=== PATIENT | female | born 1965 | race African-American/Black ===

== ENCOUNTER 2019-01-11 07:36 | Inpatient (IN) ==
[2019-01-11] MEDS ORDERED: ASPIRIN PO ONE (07:44)
[2019-01-11 08:13] LABS: INR 1.05; PROTIME 14.5 Seconds (11.0-16.0)
[2019-01-11 08:25] LABS: PTT 32.4 Seconds (22.3-41.8)
--- NOTE | 2019-01-11 08:27 | Diag Imaging Result Doc PS360 ---
EXAM: CHEST-2 VIEWS INDICATION: SOB TECHNIQUE: 2 views COMPARISON: 08/14/2018 FINDINGS: There is mild elevation of the right hemidiaphragm. The lungs are grossly clear. There is no discrete pleural fluid collection or pneumothorax. The cardiomediastinal silhouette and central vasculature are grossly unremarkable. IMPRESSION: No evidence of acute pathology by plain radiograph. Electronically signed by Flex Almonte 01/11/2019 8:25 AM
[2019-01-11 08:49] LABS: BASO# 0.01 X1000 (0.0-0.2); BASO% 0.2 % (0.0-0.8); EOS# 0.08 X1000 (0.0-0.7); EOS% 1.8 % (0.0-10.0); HEMATOCRIT 13.8 % (37.0-47.0); HEMOGLOBIN 4.3 g/dL (12.0-16.0); LYMPH# 0.71 X1000 (1.2-3.4); LYMPH% 16.1 % (20.5-51.1); MCH 29.1 PG (27-31); MCHC 31.2 g/dL (33-37); MCV 93.2 FL (81-99); MONO# 0.56 X1000 (0.11-0.59); MONO% 12.7 % (1.7-9.3); MPV 10.5 FL (7.4-10.4); NEUT# 3.06 X1000 (1.4-6.5); NEUT% 69.2 % (42.2-75.2); PLT 161 X1000 (130-400); RBC 1.48 XMIL (4.2-5.4); RDW 13.8 % (11.5-14.5); WBC 4.42 X1000 (4.8-10.8)
[2019-01-11 09:15] LABS: AGAP 9; ALB/GLOB RATIO 1.2; ALBUMIN 2.9 g/dL (3.5-5.0); ALKALINE PHOSPHATASE 64 U/L (32-104); BUN 76 mg/dL (8-22); CALCIUM 8.3 mg/dL (8.8-10.2); CHLORIDE 110 mmol/L (98-107); CK PROFILE 66 U/L (24-173); COSMO 295; CREATININE 4.7 mg/dL (0.5-0.9); ESTIMATED GFR 12; GLUCOSE 113 mg/dL (70-104); GOT 21 U/L (10-30); GPT 14 U/L (10-36); POTASSIUM 5.4 mmol/L (3.5-5.1); SODIUM 136 mmol/L (136-145); TCO2 17 mmol/L (25-35); TOTAL BILIRUBIN < 0.15 mg/dL (0.20-1.00); TOTAL PROTEIN 5.4 g/dL (6.3-8.3)
[2019-01-11 09:26] LABS: IRON SATURATION 10 %; TIBC 294 ug/dL; TOTAL IRON 28 ug/dL (49-151); UNBOUND IRON 266 ug/dL (112-346)
[2019-01-11] MEDS ORDERED: LASIX IV ONE (09:42)
--- NOTE | 2019-01-11 09:55 | EKG Report ---
Test Performed on : 01/11/2019 07:41:18 AM Test Reason : SOB Blood Pressure : / mmHG Vent. Rate : 106 BPM Atrial Rate : 106 BPM P-R Int : 120 ms QRS Dur : 082 ms QT Int : 338 ms P-R-T Axes : 067 060 092 degrees QTc Int : 448 ms Sinus tachycardia. Possible Left atrial enlargement Left ventricular hypertrophy with repolarization abnormality Abnormal ECG When compared with ECG of 22-NOV-2018 10:20, Non-specific change in ST segment in Anterior leads T wave inversion no longer evident in Inferior leads Nonspecific T wave abnormality has replaced inverted T waves in Lateral leads Unconfirmed Result
[2019-01-11] MEDS: PROTONIX 80 MG in NS 80 ML IV SCH ×2 (10:19→18:01)
[2019-01-11] MEDS ORDERED: ZOFRAN IV PRN (10:23)
--- NOTE | 2019-01-11 12:06 | HISTORY AND PHYSICAL ---
PRIMARY CARE PROVIDER: Dr. Hoffman. CHIEF COMPLAINT: Chills, shortness of breath, severe reflux, dark stools along with nausea. HISTORY OF PRESENT ILLNESS: Ms. Sheba Metz is a 53-year-old female with a medical history of hypertension, GERD, end-stage renal disease not yet on dialysis but does have a new right upper arm AV graft, gastroparesis, severe duodenitis with duodenal erosions on an EGD from July of 2018, now presents with complaints of chills since her last admission in July of 2018, but over the last 2 or 3 days she has had some severe shortness of breath , daily dark stools, severe reflux with nausea. Lab work revealed that she has a significantly low hemoglobin and hematocrit of 4.3 and 13.8. Her end-stage renal disease is stable, so will admit to the ICU for treatment, will consult Dr. Yang and Dr. Petersen. PAST MEDICAL HISTORY: 1. Hypertension, 2. GERD with severe reflux. 3. End-stage renal disease or stage 5. 4. Gastroparesis. 5. July 2018 had severe duodenitis and duodenal erosions along with small bowel AV malformation. 6. Severe left ventricular hypertrophy due to hypertensive heart disease. SURGICAL HISTORY: Right upper arm AV fistula placed October of 2018. SOCIAL HISTORY: Smokes a half-pack per day and has so for at least 40 years. Denies alcohol or illicit drug use. FAMILY HISTORY: Mother had atrial fibrillation and CVA. Father had diabetes. ALLERGIES: No known drug allergies. HOME MEDICATIONS: Not verified by medication reconciliation but does have amlodipine 10 mg p.o. daily, Lasix 40 mg p.r.n., hydralazine 100 mg unknown frequency, Lopressor 50 mg p.o. twice daily, and Zofran 4 mg p.o. q.4 h. p.r.n., but again, these have not been verified. REVIEW OF SYSTEMS: Fourteen-point review of systems are complete and all were negative except for those mentioned above in HPI. She has been having chills, severe fatigue and weakness, dark stools with severe reflux and nausea. Denies any pain. PHYSICAL EXAMINATION: VITAL SIGNS: Temperature 98.1, heart rate 91, respiratory rate 18, blood pressure 151/84, saturation 100% on room air, 5 feet 8 inches tall, 130 pounds, BMI is 19.8. GENERAL: Ms. Sheba Metz is a 53-year-old female. She is in no acute distress. She is able to answer questions appropriately. HEENT: Atraumatic, normocephalic. Pupils equal, round, reactive to light. Extraocular movements intact. Mucous membranes are dry. Sclera is pale. NECK: Trachea midline. CARDIOVASCULAR: S1, S2, regular rate and rhythm, no rubs, gallops, or murmurs. No lower extremity edema. +2 dorsalis and radial pulses. Negative JVD or carotid bruits. PULMONARY: Clear to auscultate bilateral breath sounds. No accessory muscle use or work of breathing noted. GI: Soft, nontender, nondistended. Hypoactive bowel sounds x4. EXTREMITIES: Moves all extremities equally with full range of motion. Positive bruit and thrill in the right upper arm AV graft. NEUROLOGICAL: Alert and oriented x4, follows commands. Sensory is intact. SKIN: Warm, dry, and intact. LABORATORY DATA: White blood cells 4000, hemoglobin 4.3, hematocrit 13.8, platelet count 161. INR is 1.05, PTT is 32.4. Sodium 136, potassium 5.4, BUN 76, creatinine 4.7, glucose 113, calcium 8.3. Iron 28, total iron-binding capacity 294, saturation 10, unsaturated iron binding 266, ferritin 12. Bilirubin is less than 0.15. AST 21, ALT 14. CK 66. Troponin less than 0.01. ProBNP 3778. Albumin 2.9. IMAGING: Chest x-ray: There is mild elevation of the right hemidiaphragm. Lungs are clear. No pulmonary edema. ASSESSMENT AND PLAN: 1. Acute blood loss anemia secondary to gastrointestinal bleed. Has been having severe reflux with dark stools and shortness of breath that has started over the last 2-3 days with a July of 2018 diagnosis of hiatal hernia, erosive gastritis and severe duodenitis with small bowel AV malformation. She denies taking any medication such as ibuprofen or any other irritants of the stomach. During that time, she was seen by Dr. Bettencourt and was sent home on Protonix. Will start with a Protonix drip and will transfuse 3 units of packed red blood cells, and given her left ventricular hypertrophy that was severe, she will get a dose of Lasix with that. 2. Shortness of breath secondary to anemia. 3. Chronic kidney disease stage 5, now has a right upper arm AV graft but has not been started on hemodialysis yet. Potassium is mildly elevated at 5.4. Dr. Petersen has been following her as an outpatient. Will reconsult him. 4. History of severe left ventricular hypertrophy secondary to hypertensive heart disease. She takes Lasix p.r.n. at home. She takes metoprolol. Once medications are verified, will resume her beta-gerardo. 5. Hypertension. Currently blood pressure is somewhat stable, is in the 150s right now. At home, she should be on metoprolol and amlodipine along with hydralazine. May have to start her on something IV until she can start taking p.o. 6. Gastroparesis history. She was on Reglan at home. Will hold for now. 7. Tobacco abuse. Cessation discussed. She has no wishes to quit. 8. DVT prophylaxis. SCDs. Dictated by VICTOR HUGO De La Fuente for Scooby Hartman MD Addendum: Patient seen and examined by myself. Agree with VICTOR HUGO note. It reflects my assessment and plan. Patient is being admitted to hospital for possible GI bleeding. Hb is 4.3. Will transfuse 3 units of PRBC. She is very short of breath secondary to anemia. Also there a acute on chronic kidney disease. Will monitor patient closely. Will consult GI for possible EGD. Will send patient to ICU for better monitoring. cc: VICTOR HUGO De La Fuente MD [facility] CENTERJaime
--- NOTE | 2019-01-11 13:52 | PROVIDER DOCUMENTATION ---
This chart was entered by Leonela Almonte Scribe, acting as scribe for Kat Silverio MD. HPI-Respiratory General - General Chief Complaint: Shortness of Breath Stated Complaint: SHORTNESS OF BREATH / WEAKNESS Time Seen by Provider: 01/11/19 08:02 Source: patient Allergies/Adverse Reactions: Patient Allergies Allergy/AdvReac Type Severity Reaction Status Date / Time No Known Allergies Allergy Verified 01/11/19 08:45 Home Medications: Home Medication List Medication Instructions Recorded Confirmed Last Taken Type Metoprolol [Lopressor] 50 mg PO BID #120 tab 08/16/18 01/11/19 01/10/19 Rx Furosemide [Lasix] 40 mg PO BID 11/22/18 01/11/19 Unknown History Ondansetron [Zofran] 4 mg PO Q4H PRN PRN #10 tablet 11/24/18 01/11/19 01/11/19 Rx Amlodipine Besylate 1 tab PO DAILY 01/11/19 01/11/19 01/10/19 History Folic Acid/B Cplx/C/Selen/Zinc 3,000 mg PO DAILY 01/11/19 01/11/19 Unknown History [Dialyvite 3,000 Tablet] Hydralazine HCl 100 mg PO TID 01/11/19 01/11/19 01/10/19 History - History of Present Illness-Resp Nature of Presenting Problem: 53 yof presents w/family to ed w/ co sob for a few days but was worse yesterday while pt was working. pt states she couldn't walk to bathroom this morning w/ out feeling sob. pt says she feels better when laying flat. pt is also coughing some and sneezing. pt called pcp for apt but missed appt to come to er. pt has hx of chf, HTN, kidney disease. pt family said she had some leg cramps night before last and was painful. pt is a smoker. Severity in ED: reports: mild Onset/Duration: reports: other (few days ago) Timing: reports: still present Review of Systems - Adult - REVIEW OF SYSTEMS - ADULT Constitutional: reports: no symptoms reported Eyes: reports: no symptoms reported Ears, Nose, Mouth & Throat: reports: no symptoms reported Cardiovascular: reports: no symptoms reported Respiratory: reports: cough, shortness of breath. denies: dyspnea on exertion, excessive sputum production, hemoptysis Gastrointestinal: reports: no symptoms reported Genitourinary: reports: no symptoms reported Musculoskeletal: reports: no symptoms reported Integumentary: reports: no symptoms reported Neurological: reports: no symptoms reported Psychiatric: reports: no symptoms reported Endocrine: reports: no symptoms reported Hematologic/Lymphatic: reports: no symptoms reported Allergic/Immunologic: reports: no symptoms reported All Other Systems: Reviewed and Negative Past History - Adult - PAST MEDICAL HISTORY-ADULT Review of Records: reports: Old Records Reviewed, Nursing Assessment Review, Medications Reviewed, Social history reviewed & non-contributory. Major Childhood Illnesses: reports: denies history Cardiovascular: reports: CHF, HTN (untreated) Respiratory: reports: denies history Gastrointestinal: reports: denies history Obstetrical/Gynecological: reports: denies history Genitourinary: reports: kidney disease Musculoskeletal: reports: denies history Neurological: reports: denies history Endocrine/Immune: reports: denies history Other Conditions: reports: denies history - PRIOR SURGERIES/PROCEDURES Surgical/Procedure History: reports: other (port placed in arm) - PRIOR HOSPITALIZATIONS Prior Hospitalizations: reports: none - IMMUNIZATION STATUS Childhood Immunizations: See Nurse Assessment Flu Vaccine: See Nurse Assessment - FAMILY HISTORY Family History: reviewed, not pertinent - SOCIAL HISTORY Smoking: cigarettes, less than 1 pack/day Provider spent 3-5 mins advising pt. on dangers of tobacco.: Discussed manners to quit use, and f/u contacts for add'l counseling. Substance Use: none/never Physical Exam-General - PHYSICAL EXAM-ADULT Initial Vital Signs Reviewed: Yes - CONSTITUTIONAL General Appearance: appears well, alert, no apparent distress - EYES Eyes: PERRL/EOMI, pink conjunctivae - HEAD, EARS, NOSE, MOUTH & THROAT HENMT: normocephalic/atraumatic, moist mucous membranes, normal ENT inspection - NECK Neck: non-tender, full range of motion, supple - RESPIRATORY Respiratory: chest non-tender, lungs clear, normal breath sounds - CARDIOVASCULAR Cardiovascular: normal peripheral pulses, no edema, no JVD, no murmur, tachycardia. negative: gallop/S3, gallop/S4, extra beats - GASTROINTESTINAL (ABDOMEN) Abdominal Exam: normal bowel sounds, non tender, soft - LYMPHATIC Lymphatic: no adenopathy - MUSCULOSKELETAL Back Exam: normal inspection, no CVA tenderness, no vertebral tenderness Extremity: normal range of motion, non-tender, normal inspection - SKIN Integumentary: normal color, normal turgor, warm/dry - NEUROLOGIC Neurologic: hand alterations tailor II-XII nml as tested, grossly normal - PSYCHIATRIC Psych/Mental Status: normal mood/affect, normal thought content, normal thought process, oriented x 3 Progress - PLAN OF CARE/RESULTS Result Diagrams: 01/12/19 19:44 01/12/19 04:30 - REASSESSMENT Reassessment #1 Time Reassessed: 08:51 (received notification of critical lab value, it was unchanged, so pt will recieve transfusion and be admitted. ) Status: unchanged - EKG 1 Time of EKG reading by physician:: 07:41 EKG Read and Signed by:: Kat Silverio EKG Interpretation (*Must complete 3 of following elements*): Abnormal Rate: 106 Rhythm: Sinus Tachycardia WV Interval: normal Comments: LVH - XRAY 1 XRAY Study: Chest Impression: See EMR Report (EXAM: CHEST-2 VIEWS INDICATION: SOB TECHNIQUE: 2 views COMPARISON: 08/14/2018 FINDINGS: There is mild elevation of the right hemidiaphragm. The lungs are grossly clear. There is no discrete pleural fluid collection or pneumothorax. The cardiomediastinal silhouette and central vasculature are grossly unremarkable. IMPRESSION: No evidence of acute pathology by plain radiograph. Electronically signed by Flex Almonte 2018 8:25 AM 01/11/19 0825 Interpreting Physician: Flex Almonte MD Dictated Date/Time: 01/11/19 0823 cc: Kat Silverio MD; Xavier Hoffman MD) Departure - Departure Date of Disposition Decision: 01/11/19 Time of Disposition Decision: 10:03 DIAGNOSIS: Acute on chronic blood loss anemia, Dyspnea, Weakness Disposition: ADMITTED INPATIENT 09 Certified Medical Emergency: Emergent Condition: Stable - Critical Care Note This patient required my direct & personal management of CC.: Yes Total Time (mins): 35 Critical Care Statement: This patient required my direct personal management to treat or rule out processes, the absence of which, could potentiallly result in sudden, clinically significant life or limb threatening deterioration. Attestation - Physician/ YANY Attestation Patient care was provided by Advanced Practice Provider:: No The physician spent face to face time with patient:: Yes Advanced Practice Provider documentation review:: Supervising physician onsite and consulted in the evaluation and care of this patient. The physician did have a face to face encounter with the patient. This chart was documented by the indicated scribe, (Leonela Almonte, Adri) and accurately reflects the services I performed and decisions made by me, Kat Silverio MD, as attested by the provider's signature.
[2019-01-11] MEDS ORDERED: NS 500 ML IV SCH (14:15)
[2019-01-11] MEDS: APRESOLINE IV PRN (16:29)
[2019-01-11] MEDS: LABETALOL IV PRN (18:03)
[2019-01-11] MEDS: SODIUM CHLORIDE 0.9% INJ PRN (18:35)
[2019-01-11] MEDS: PHENERGAN IV PRN (18:35)
--- NOTE | 2019-01-11 18:59 | NEPHROLOGY CONSULTATION ---
DATE: 01/11/2019 REASON FOR ADMISSION: Weakness with GI bleed. REASON FOR CONSULT: Acute kidney injury on CKD stage 5. CONSULTING PHYSICIAN: VICTOR HUGO Trejo. HISTORY OF PRESENT ILLNESS: Ms. Metz is a 53-year-old female who has been seen by our services on hospital visit on 08/11/2018. At that time she was in acute renal failure secondary to volume depletion. The patient at that time had a creatinine in the 5.9 range. We had seen her in our office on 12/05 and at that time her creatinine was 4.4. During this period of time she has had acute kidney injury without recovery, minimal uremic symptoms. She had been referred to Dr. Pardo and had an AV fistula placed to the right upper arm with good palpable thrill. The patient is due to be seen in our office within the next month. Unfortunately, during this period of time she had presented with declining appetite, intermittent nausea, abdominal discomfort. She had started with complaints of chills, had black tarry stools. She does complain of severe reflux and nausea. No hematochezia. No hemoptysis. She has not noted or smelled any blood. Her labs upon admission showed a hemoglobin of 4.3 and a hematocrit of 13.8. Her BUN was 76 with a creatinine of 4.7, which is close to her baseline. The patient has been currently on Zofran so she did not notice any difference in her nausea. She does deny chest pain. No increased work of breathing. No increased lower extremity swelling. PAST MEDICAL HISTORY: Chronic kidney disease stage 5 without dialysis, hypertension, GERD with severe reflux, gastroparesis. She has severe duodenitis and duodenal erosions with a small AV malformation noted in July 2018 on her last admission, severe left ventricular hypertrophy due to hypertension and heart valve disease. PAST SURGICAL HISTORY: She has had a right upper arm AV fistula placed by Dr. Pardo in October of 2018. SOCIAL HISTORY: She lives with her family. Smokes a half a pack per day for at least 40 years. Denies any alcohol or illicit drug use. FAMILY HISTORY: Mother had atrial fibrillation and CVA. Father has diabetes. ALLERGIES: Listed as no known drug allergies. HOME MEDICATIONS: Have yet to be verified. She does state that she is on amlodipine, Lasix, hydralazine, Lopressor, Zofran. REVIEW OF SYSTEMS: Times 10 with pertinent positives listed above in the HPI. VITAL SIGNS: The patient's most recent vital signs, temperature 97.4 degrees, blood pressure 184/97, heart rate 87, respirations 17. She is on room air. Last recorded saturation is 100%. LABS: Sodium 136, potassium 5.4, chloride 110, CO2 17, BUN 76, creatinine 4.7, glucose 113. White count 4.02, hemoglobin 4.3, hematocrit 13.8, with a platelet count of 161,000. Chest x-ray showed mild elevation of right hemidiaphragm. Lungs were clear. No pulmonary edema. Her anemia studies show an iron of 28, total iron-binding capacity of 294, iron saturation of 10%, with iron unsaturated binding of 266, ferritin of 12. Bilirubin less than 0.15, AST 21, ALT 14. CK of 66. Troponin less than 0.01. ProBNP 3,778. PHYSICAL EXAMINATION: General: This is a 53-year-old female. She appears in no acute distress, though chronically ill. Skin: Warm and dry. HEENT: Normocephalic, atraumatic. Conjunctivae very pale. She has TUCKER. Mucous membranes are dry. Neck: Supple. Trachea midline. No evidence of JVD. Cardiovascular: Regular rate and rhythm. S1, S2 noted without murmur or gallop. Lungs: Clear to auscultation bilaterally. Equal excursion. She is on room air. Abdomen: Soft. No tenderness noted upon light palpation. Positive bowel sounds. Genitourinary: Not inspected. Patient has minimal urine out. Extremities: Moves all extremities well. No edema. Positive thrill to right upper arm AV fistula. Neurological: She is alert and oriented x3. Integumentary: Skin is warm and dry without rashes or lesions. ASSESSMENT AND PLAN: 1. Chronic kidney disease stage 5D. Patient is not in acute kidney injury. Her baseline creatinine is 4.4. Her creatinine today is 4.7. BUN remains elevated, more than likely secondary to her volume depletion. She is currently receiving 1 unit of packed red blood cells. The patient currently has a Protonix drip. She has ordered to receive 3 units of packed red blood cells, 1 unit is currently infusing. We will continue to monitor on daily labs. 2. Electrolytes and acid-base balance. Patient remains acidotic secondary to #1. We will monitor. 3. Anemia. This is currently being evaluated. Dr. Yang has been consulted. Patient has seen Dr. Bettencourt in the past. 4. Hypertension. More than likely the patient is volume contracted elevating her blood pressure. She is on metoprolol, amlodipine, hydralazine at home. This is being monitored. She is to be sent to ICU for evaluation. I would like to thank you for allowing us to follow with this patient. Dictated by VICTOR HUGO Arechiga for Abdifatah Petersen MD cc: VICTOR HUGO Arechiga MD
--- NOTE | 2019-01-11 19:41 | CONSULTATION ---
DATE OF CONSULTATION: 01/11/2019 REASON FOR CONSULTATION: Severe anemia. HISTORY OF PRESENT ILLNESS: This is a 53-year-old female with a history of hypertension, GERD, end-stage renal disease with recent graft placement in the right upper arm for dialysis which has not been started yet. Patient has presented with 2 or 3 days of severe weakness and shortness of breath. She had denied syncope but reports dizziness and lightheadedness. She states she could not walk far without having severe shortness of breath. She felt like she may pass out. She denies nausea or vomiting. She has denied abdominal pain. She denied constipation or diarrhea. She did report dark stool on occasion. She has reported no NSAID use since her EGD in July. The patient had been seen by Dr. Bettencourt for an admission in the hospital on July, and she had an EGD on 08/12/2018. Indications were melena, anemia, and NSAID use. 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 The patient had been taking her stomach medication at home. She has had a dialysis catheter placed but has not started dialysis yet. She has never had a colonoscopy. PAST MEDICAL HISTORY: Hypertension, end-stage renal disease with recent dialysis graft placement, a history of gastroparesis, left ventricular hypertrophy related to hypertensive heart disease. PAST SURGICAL HISTORY: Right upper arm AV fistula placed in October 2018, the patient states she has not been started on dialysis. She had an EGD July 2018, with findings as noted above. ALLERGIES: No known drug allergies. HOME MEDICATIONS: Amlodipine 1 tablet daily, Lasix 40 mg daily, hydralazine daily, Lopressor 50 mg twice a day, Zofran 4 mg every 4 hours as needed. SOCIAL HISTORY: She smokes a half a pack of cigarettes a day. She denies alcohol use. She works in manufacturing. FAMILY HISTORY: Mother had atrial fibrillation and CVA. Father had diabetes. REVIEW OF SYSTEMS: Per History of Present Illness. PHYSICAL EXAMINATION: Vital Signs: Temperature 98.8 degrees, pulse 98, respirations 16, blood pressure 188/87. General: Patient is awake and alert. No acute distress. She has family at the bedside. HEENT: Normocephalic, atraumatic. Pupils equal, round, and reactive to light. Sclerae nonicteric. Cardiovascular: Regular rate and rhythm. Pulmonary: Lung sounds essentially clear. Abdomen: Soft. Positive bowel sounds. Nontender. Extremities: No lower extremity edema noted. Neurological: Cranial nerves 2-12 grossly intact. She is awake and alert, oriented to person, place, and time. LABORATORY: Hematology: WBC 4.42, hemoglobin 4.3, hematocrit 13.8, MCV 93.2, platelet 161,000. Coagulation: Pro-time 14.5, INR 1.05, PTT 32.4. Chemistry: Sodium 136, potassium 5.4, chloride 110, CO2 of 17, BUN 76, creatinine 4.7, glucose 113, calcium 8.3. Iron 28, TIBC 294, percent saturation 10. Ferritin 12. Total bilirubin less than 0.15, AST 21, ALT 14, alkaline phosphatase 64, albumin 2.9. ASSESSMENT AND PLAN: 1. Severe anemia. Patient had EGD in July that showed hiatal hernia, acute gastritis, gastric AVM with no visible bleeding, severe duodenitis with deep duodenal erosions, and small- bowel arterial venous malformations. Since the procedure, patient states she has not taken any further NSAIDs. 2. Shortness of breath. 3. Chronic kidney disease. Patient had a dialysis graft placed but has not been started on dialysis. I believe Dr. Petersen will be consulted. 4. Hypertension. Continue current medications. 5. History of gastroparesis. On Reglan. Continued to monitor hemoglobin and hematocrit. Transfuse packed red blood cells. Monitor for any sign of active bleeding. We will plan for an EGD tomorrow. Further plans will be made according to findings. We have discussed the procedure along with benefits and risks with the patient and her family. The patient was also seen and examined by Dr. Yang. Thank you for this consultation. Dictated by VICTOR HUGO Saunders for Gerardo Yang MD cc: VICTOR HUGO Sepulveda MD [facility]
[2019-01-11 20:44] LABS: HEMATOCRIT 27.2 % (37.0-47.0); HEMOGLOBIN 8.8 g/dL (12.0-16.0)
[2019-01-12] MEDS: APRESOLINE IV PRN ×2 (00:56→13:12)
[2019-01-12] MEDS: PROTONIX 80 MG in NS 80 ML IV SCH ×2 (04:14→13:34)
[2019-01-12 04:50] LABS: EOS# 0.15 X1000 (0.0-0.7); HEMATOCRIT 24.6 % (37.0-47.0); HEMOGLOBIN 8.3 g/dL (12.0-16.0); IMM GRAN# 0.02 X1000 (0.0-0.04); IMM GRAN% 0.3 % (0.0-0.5); LYMPH# 1.26 X1000 (1.2-3.4); LYMPH% 17.1 % (20.5-51.1); MCH 29.4 PG (27-31); MCHC 33.7 g/dL (33-37); MCV 87.2 FL (81-99); MONO# 0.59 X1000 (0.11-0.59); MPV 10.5 FL (7.4-10.4); NEUT# 5.33 X1000 (1.4-6.5); NEUT% 72.6 % (42.2-75.2); PLT 146 X1000 (130-400); RBC 2.82 XMIL (4.2-5.4); RDW 14.6 % (11.5-14.5); WBC 7.35 X1000 (4.8-10.8)
[2019-01-12 04:58] LABS: INR 0.95; PROTIME 13.5 Seconds (11.0-16.0)
[2019-01-12 04:59] LABS: PTT 31.3 Seconds (22.3-41.8)
[2019-01-12 05:23] LABS: ALBUMIN 2.9 g/dL (3.5-5.0); CALCIUM 8.4 mg/dL (8.8-10.2); CREATININE 5.1 mg/dL (0.5-0.9); MAGNESIUM 1.6 mg/dL (1.5-2.7); POTASSIUM 4.9 mmol/L (3.5-5.1); TOTAL BILIRUBIN 0.22 mg/dL (0.20-1.00); TOTAL PROTEIN 5.7 g/dL (6.3-8.3)
--- NOTE | 2019-01-12 07:47 | EKG Report ---
Test Performed on : 01/12/2019 07:36:54 AM Test Reason : severe anemia Blood Pressure : / mmHG Vent. Rate : 100 BPM Atrial Rate : 100 BPM P-R Int : 118 ms QRS Dur : 088 ms QT Int : 338 ms P-R-T Axes : 070 069 093 degrees QTc Int : 436 ms Normal sinus rhythm. Possible Left atrial enlargement Left ventricular hypertrophy T wave abnormality, consider lateral ischemia Abnormal ECG When compared with ECG of 11-JAN-2019 07:41, (Unconfirmed) No significant change was found Confirmed by Carson MALDONADO, Amol Skinner ([id number]) on 01/12/2019 9:21:38 PM
[2019-01-12] MEDS: LABETALOL IV PRN (08:36)
[2019-01-12 08:45] LABS: HEMATOCRIT 25.2 % (37.0-47.0); HEMOGLOBIN 8.3 g/dL (12.0-16.0)
[2019-01-12] MEDS ORDERED: DIPRIVAN 1% ONE ×2 (10:32→11:24)
[2019-01-12] MEDS ORDERED: XYLOCAINE-MPF 2% ONE (10:33)
--- NOTE | 2019-01-12 11:25 | PROGRESS NOTE ---
DATE: 01/12/2019 SUBJECTIVE: Patient reports feeling better and less tired with no signs of overt GI bleeding like vomiting blood or having black stools. OBJECTIVE: Vital Signs: Temperature 99.3 degrees, heart rate 97, respiratory rate 18, blood pressure 176/100, and O2 saturation 100% on room air. General: This a 53-year- old female lying in bed in no acute distress HEENT: Head is normocephalic and atraumatic. Neck: No JVD noted. No carotid bruits. No lymphadenopathy. Cardiovascular : S1-S2 heard. No murmurs, gallops, or rubs. Regular rate and rhythm. Lungs: Clear bilaterally to auscultation. No work of breathing or using accessory muscles. Abdomen: Soft. Nontender to palpation. Bowel sounds present. No organomegaly. Extremities: No clubbing, cyanosis or edema. Peripheral pulses are present in both legs. Neurological: Patient alert and oriented x3. Moves all 4 extremities. LABORATORY DATA: White cell count 7.35. Hemoglobin 8.3, hematocrit 25.2 and platelets 146,000 with an INR of 0.95 and creatinine of 5.1. ASSESSMENT AND PLAN: 1. Acute blood loss anemia secondary to gastrointestinal bleeding. The patient has received so far 2 units of blood. Hemoglobin is 8.3. Gastroenterology has been involved in her care. They have planned to do EGD today. We will see what it shows. There has been an EGD in July show hiatal hernia, erosive gastritis and severe duodenitis. 2. Chronic kidney disease stage 5. Patient has been evaluated by Dr. Petersen. Apparently, the baseline for this patient's creatinine is 4.4, but is getting a little bit higher today 5.1. 3. At this point, we will continue with the same management. 4. Hypertensive heart disease. Patient is on metoprolol. Blood pressure unfortunately is higher because she is not able to take any medications by mouth. We will restart those as soon as she is out from the EGD. 5. History of gastroparesis. We will continue with the Reglan at home. 6. Tobacco abuse. Patient has been advised to stop smoking. 7. Deep vein thrombosis prophylaxis on SCD's. 8. I think the patient can be moved to a regular floor if the results of the EGD are fine. cc: Scooby Hartman MD [facility]
[2019-01-12] MEDS: TYLENOL PO PRN (12:08)
[2019-01-12] MEDS ORDERED: MORPHINE IV PRN (13:22)
[2019-01-12] MEDS: LOPRESSOR PO SCH ×2 (13:34→20:11)
[2019-01-12 14:02] LABS: HEMATOCRIT 23.9 % (37.0-47.0); HEMOGLOBIN 7.9 g/dL (12.0-16.0)
--- NOTE | 2019-01-12 15:15 | OPERATIVE NOTE ---
PROCEDURE DATE: 01/12/2019 PROCEDURE: EGD and hemorrhage control. PREOPERATIVE DIAGNOSIS: Profound anemia, gastrointestinal bleed. POSTOPERATIVE DIAGNOSIS: Arteriovenous malformation x3 duodenal bulb, treated. MEDICATION USED: MAC as per Anesthesia. SCOPE USED: Pentax gastroscope. HISTORY: This is a 53-year-old, female admitted to hospital after she presented with symptomatic anemia. She was found to have significant anemia. Her hemoglobin was 4.3 on admission. She has a history of melena. She had a similar presentation earlier, which was found to be secondary to AVM that was treated. EGD was scheduled for diagnostic as well as therapeutic purposes. PROCEDURE: Informed consent was obtained from the patient. The procedure, risks, benefits, and alternatives were explained in layman's terms. She understood. All her pertinent questions were answered. The patient was brought to the endoscopy unit and was premedicated as per Anesthesia. After adequate sedation, while she was lying in the left lateral position, the gastroscope was introduced into the posterior pharynx and advanced under direct vision into the esophagus. The esophagus in its entire length appeared to be normal. No esophagitis, webs, rings, or varices were seen. The scope was then passed through the esophagus into the stomach. The stomach was examined both in straight and retroflexed view, which revealed normal cardia, fundus, body, and antrum. The scope was then passed through the normal pylorus into the duodenal bulb and then to the second portion of the duodenum. The second portion of the duodenum appeared to be normal. However, in the bulb, there were 3 AVMs noted. All 3 were not actively bleeding. Using a sclerotherapy needle, I injected 1:10,000 epinephrine in aliquots of 0.5 mL. A total of about 4 to 6 mL was injected in and around these AVMs. After that, I used a heater probe and applied 20 joules of current to eradicate the AVMs. Initially, there was some oozing which stopped after good cautery. A good crater was noted. The scope was then withdrawn. The patient tolerated the procedure well. No complications were noted. The patient was then transferred to the recovery area in a stable condition. 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 RECOMMENDATION: The patient will be monitored in the hospital to make sure she does not have any episodes of melena and maintains her hemoglobin and hematocrit. I would continue on proton pump inhibitor, but switch it to p.o. in the morning. She can be discharged once stable and to be followed up at the office. She will need a colonoscopy. I have explained the findings and plan to the patient's family members. They understood. All the pertinent questions answered. cc: Gerardo Yang MD
[2019-01-12] MEDS: SODIUM CHLORIDE 0.9% INJ PRN (15:19)
[2019-01-12] MEDS: PHENERGAN IV PRN (15:19)
--- NOTE | 2019-01-12 17:16 | NEPHROLOGY PROGRESS NOTE ---
DATE: 01/12/2019 SUBJECTIVE: She states she feels much better today. She has been able to eat. She does still have some nausea. No chest pain, shortness of breath etc. Overall she has been better and she has been able to work. OBJECTIVE: Vital Signs: Blood pressure 155/89, heart rate 87, respirations 17, temperature 99.3 degrees. General: No acute distress. Skin: Warm and dry. Conjunctivae are pink. Neck: Neck veins are not distended. Heart: Regular. Tachycardic with S4. Lungs: Equal. No crackles or wheezes. Abdomen: Soft, nontender. Bowel sounds present. Extremities: Have no edema, clubbing, or cyanosis. IMPRESSION: 1. Chronic kidney disease stage 5. She is reaching the point where she will require dialysis. However, I would prefer to wait until her fistula is ready to use if possible. Though she does have moderate symptoms that could be attributed to uremia, her severe anemia may well explain most of those symptoms. She has responded well to transfusion and her hemoglobin is now stable. We will follow carefully with you. If necessary, we will institute dialysis. I am afraid her fistula will be inadequate and we will have to place a catheter if that is necessary. cc: Abdifatah Petersen MD
[2019-01-12] MEDS: APRESOLINE PO SCH (17:46)
[2019-01-12 19:49] LABS: HEMATOCRIT 24.9 % (37.0-47.0)
[2019-01-12] MEDS: LASIX PO SCH (20:10)
[2019-01-13 03:21] LABS: HEMATOCRIT 24.3 % (37.0-47.0); HEMOGLOBIN 8.1 g/dL (12.0-16.0); MCH 29.8 PG (27-31); MCHC 33.3 g/dL (33-37); MCV 89.3 FL (81-99); MPV 10.9 FL (7.4-10.4); RBC 2.72 XMIL (4.2-5.4); RDW 14.8 % (11.5-14.5)
[2019-01-13 03:37] LABS: CALCIUM 8.2 mg/dL (8.8-10.2); CREATININE 4.9 mg/dL (0.5-0.9); POTASSIUM 5.5 mmol/L (3.5-5.1)
[2019-01-13] MEDS ORDERED: NORVASC PO SCH (09:00)
[2019-01-13] MEDS: PROTONIX IV SCH (09:30)
[2019-01-13] MEDS: TYLENOL PO PRN (09:31)
[2019-01-13] MEDS: LASIX PO SCH ×2 (09:31→22:26)
[2019-01-13] MEDS: SORBITOL PO SCH ×2 (09:31→17:20)
[2019-01-13] MEDS: LOPRESSOR PO SCH ×2 (09:31→22:26)
[2019-01-13] MEDS: APRESOLINE PO SCH ×3 (09:31→17:20)
[2019-01-13] MEDS: NORVASC PO SCH (09:31)
[2019-01-13] MEDS: NEPHROCAPS PO SCH (09:31)
--- NOTE | 2019-01-13 11:08 | PROGRESS NOTE ---
DATE: 01/13/2019 SUBJECTIVE: Patient reports feeling fine. Denies any signs of overt GI bleeding like hematemesis or melena. OBJECTIVE: Vital Signs: Temperature 97.8 degrees, heart rate 84, respiratory rate 16, blood pressure 166/94 and O2 saturation 100% on room air. General: This is a chronically ill-appearing 53-year-old female lying in bed in no acute distress. HEENT: Head is normocephalic and atraumatic. Mucous membranes are moist. Neck: No JVD noted. No carotid bruits. No lymphadenopathy. No thyromegaly. Cardiovascular: S1, S2 heard. No murmurs, gallops, or rubs. Regular rate and rhythm. Respiratory: Clear bilaterally to auscultation. No work of breathing or using accessory muscles. Abdomen: Soft. Nontender to palpation. Bowel sounds present. No organomegaly. Extremities: No clubbing, cyanosis, or edema. Peripheral pulses present in both legs. Neurological: Patient is alert and oriented x3. Moves 4 extremities. LABORATORY DATA: White cell count 8, hemoglobin 8.1, hematocrit 24.3, and platelet 174,000 with BMP remarkable for potassium 5.5, BUN 98, and creatinine 4.9. ASSESSMENT AND PLAN: 1. Acute blood loss anemia secondary to gastrointestinal bleeding. The patient has been consulted with Dr. Yang today. So far, they did find AVM malformation x3 in the duodenal bulb that was treated. Recommendations are to keep this patient in the hospital to check if she develops any episodes of melena. Currently. She is on Protonix 40 mg IV q.24 hours. At this point, we are going to monitor this patient until Tuesday, and if hemoglobin is stable we will send her home. 2. Chronic kidney disease stage 5. The labs today showed BUN almost 100 with creatinine that is 4.9, and basically almost the same as yesterday. While we have seen her labs as the BUN is rising steadily, Dr. Petersen from Nephrology is following this patient. We will follow his recommendations. He mentioned in his note that he may need to have dialysis soon. We will see what he has to say. 3. Hypertensive heart disease. Blood pressure is a little bit elevated, and it ranged between 142 to 166. The patient is on hydralazine 100 mg p.o. 3 times per day plus metoprolol and Norvasc. We will continue with same management. 4. History of gastroparesis. We will continue with Reglan. 5. Tobacco abuse. Patient advised strongly to stop smoking. 6. Deep vein thrombosis prophylaxis on SCD's. 7. Disposition: We had moved this patient to a regular room yesterday, but unfortunately we do not have any beds so will see if we can move her today. cc: Scooby Hartman MD [facility]
--- NOTE | 2019-01-13 15:02 | PROGRESS NOTE ---
DATE: 01/13/2019 SUBJECTIVE: The patient is wanting to go home. She is wanting to eat something besides liquids. She denies any visible blood in the stool or hematemesis. She had an EGD yesterday on 01/12/2019 for severe anemia. The findings showed arteriovenous malformation times 3 in the duodenal bulb that was treated. She is recommended to have a colonoscopy in the future. This can be done as an outpatient. OBJECTIVE: Vital Signs: Temperature 97.6, pulse 72, respirations 19, and blood pressure 139/79. General: The patient is awake and alert. No acute distress. LABORATORY: Hematology: WBC 8, hemoglobin 8.1, hematocrit 24.3, MCV 89.3, and platelets 174. Coagulation: ProTime 13.5, INR 0.95, and PTT 31.3. Chemistry: Sodium is 134, potassium 5.5, chloride 106, CO2 15, BUN 98, creatinine 4.9, glucose 97, calcium 8.2, iron 28, TIBC 294, and percent saturation 10. ASSESSMENT AND PLAN: 1. Severe anemia. The patient has received packed red blood cells. 2. Esophagogastroduodenoscopy showing arteriovenous malformation times 3 in the duodenum. That was treated. 3. Chronic kidney disease. The patient is being followed by Nephrology. I believe there are plans for her to be started on dialysis soon. 4. Hypertension. Continue PPI and we will advance her diet to a renal diet. Continue to monitor hemoglobin and hematocrit. Other plans will be made according to her progress. I have discussed this case with Dr. Yang. Dictated by VICTOR HUGO Saunders for Gerardo Yang MD cc: VICTOR HUGO Sepulveda MD
--- NOTE | 2019-01-13 21:38 | NEPHROLOGY PROGRESS NOTE ---
DATE: 01/13/2019 SUBJECTIVE: She is uncomfortable and hoping to move to the floor. She is hungry. OBJECTIVE: Vital Signs: Blood pressure 132/79, heart rate 76, respirations 16, afebrile. Generally: No acute distress. Skin: Warm and dry. Eyes: Conjunctivae are pink. Neck: Neck veins are not distended. Heart: Regular with S4. Lungs: Equal. No crackles. Abdomen: Soft, nontender. Extremities: Have no edema, clubbing, or cyanosis. IMPRESSION: Chronic kidney disease stage 5. Her BUN continues to rise. I will use catharsis to address her intraluminal blood and see if this helps her BUN and her potassium. We will add oral bicarbonate. No other changes today. cc: Abdifatah Petersen MD
[2019-01-13] MEDS: SODIUM BICARBONATE PO SCH (22:26)
[2019-01-14] MEDS: SORBITOL PO SCH (01:36)
[2019-01-14 06:54] LABS: HEMATOCRIT 23.5 % (37.0-47.0); HEMOGLOBIN 7.6 g/dL (12.0-16.0); MCH 29.8 PG (27-31); MCHC 32.3 g/dL (33-37); MCV 92.2 FL (81-99); MPV 11.4 FL (7.4-10.4); RBC 2.55 XMIL (4.2-5.4); RDW 14.8 % (11.5-14.5); WBC 6.95 X1000 (4.8-10.8)
[2019-01-14 07:08] LABS: CALCIUM 8.1 mg/dL (8.8-10.2); POTASSIUM 4.7 mmol/L (3.5-5.1)
[2019-01-14] MEDS: SODIUM BICARBONATE PO SCH ×2 (08:34→22:40)
[2019-01-14] MEDS: APRESOLINE PO SCH ×3 (08:34→17:11)
[2019-01-14] MEDS: SODIUM CHLORIDE 0.9% INJ PRN (08:34)
[2019-01-14] MEDS: NORVASC PO SCH (08:34)
[2019-01-14] MEDS: LOPRESSOR PO SCH ×2 (08:34→22:40)
[2019-01-14] MEDS: NEPHROCAPS PO SCH (08:34)
[2019-01-14] MEDS: PROTONIX IV SCH ×2 (08:34→11:59)
[2019-01-14] MEDS: LASIX PO SCH ×2 (08:34→22:40)
[2019-01-14] MEDS ORDERED: PROTONIX IV SCH (09:31)
--- NOTE | 2019-01-14 12:01 | PROGRESS NOTE ---
DATE: 01/14/2019 SUBJECTIVE: Patient reports feeling fine. No signs of overt bleeding like melena or hematemesis. No lightheadedness noted. OBJECTIVE: Vital Signs: Temperature 98.2 degrees, heart rate 79, respiratory rate 16, blood pressure 144/72, O2 saturation 100% on room air. General: This is a chronically ill-looking, 53- year-old female lying in bed, in no acute distress. Cardiovascular: S1, S2 heard. No murmurs, gallops, or rubs. Regular rate and rhythm. Respiratory: Clear bilaterally to auscultation. No work of breathing or use of accessory muscles. Abdomen: Soft, nontender to palpation. Bowel sounds present. No organomegaly. Extremities: No clubbing, cyanosis, or edema. Peripheral pulses present in both legs. Neurological: Patient alert, oriented x3. Moves 4 extremities. LABORATORY DATA: White cell count 6.95, hemoglobin 7.6, hematocrit 23.5, platelets 181,000. BMP remarkable for creatinine 6.0 with a GFR 9 and potassium 4.7. ASSESSMENT AND PLAN: 1. Acute blood loss anemia secondary to gastrointestinal (GI) bleeding. The patient has been scoped recently by Dr. Yang. Hemoglobin has dropped some to 7.6, so at this time , I prefer to go ahead and transfuse 1 unit of blood. No signs of overt GI bleeding. At this point, we will continue with Protonix 40 mg IV that is going to be increased to q.12 h. We will continue to monitor this patient closely. 2. Chronic kidney disease, stage 5. Creatinine has gone higher today to 6.0. The BUN continues to be almost 100 so we will see what Dr. Petersen has to say in terms of possible dialysis. 3. Hypertensive heart disease. Blood pressure is better controlled definitely after we added hydralazine to her current treatment. We will continue with same management. 4. History of gastroparesis. We will continue with Reglan. 5. Tobacco abuse. Patient is strongly advised to stop smoking. 6. Deep vein thrombosis prophylaxis. Patient is on SCDs. 7. Disposition. We will follow the lead from Gastroenterology and Nephrology. cc: MD SHAY Batres
--- NOTE | 2019-01-14 12:53 | PROGRESS NOTE ---
DATE: 01/14/2019 SUBJECTIVE: The patient was resting comfortably. She just had her lunch. She reports no further melena or bright red blood per rectum. However, when she got up early this morning to go to the bathroom, she felt a little lightheaded. She has not had any abdominal pain or nausea/vomiting. Tolerating her diet. OBJECTIVE: Vitals: Temperature is 98.2 degrees, pulse 79, breathing of 16 per minute, blood pressure is 144/72. Abdomen: Full, soft, nontender. Bowel sounds are audible. LABORATORIES: Reviewed which shows her hemoglobin had dropped a little, hemoglobin dropped to 7.6 since yesterday and hematocrit dropped to 23.5 from 24.3, yesterday. Sodium 132, potassium 4.7, chloride 104, bicarbonate is 17, BUN is 99, creatinine 6.0. IMPRESSION: Symptomatic gastrointestinal (GI) bleed from arteriovenous malformation (AVM) stomach, treated with cautery and epinephrine. She does not have any signs of active bleeding. Her hemoglobin and hematocrit have dropped and could be dilutional, and she was symptomatic. PLAN: I agree with transfusion of blood. From GI perspective, I would continue on proton pump inhibitor and will follow. cc: Gerardo Yang MD [facility]
[2019-01-14] MEDS ORDERED: NS 500 ML ONE (15:13)
[2019-01-14] MEDS ORDERED: NS 500 ML IV SCH (15:15)
[2019-01-14] MEDS: TYLENOL PO PRN (17:16)
[2019-01-15] MEDS: PROTONIX IV SCH ×3 (01:44→20:59)
[2019-01-15] MEDS: SODIUM CHLORIDE 0.9% INJ PRN ×3 (01:44→20:59)
[2019-01-15 06:26] LABS: HEMOGLOBIN 9.1 g/dL (12.0-16.0); MCH 30.2 PG (27-31); MCHC 33.7 g/dL (33-37); MCV 89.7 FL (81-99); MPV 11.2 FL (7.4-10.4); RBC 3.01 XMIL (4.2-5.4); RDW 14.2 % (11.5-14.5); WBC 6.46 X1000 (4.8-10.8)
[2019-01-15 06:44] LABS: CALCIUM 7.8 mg/dL (8.8-10.2); CREATININE 6.7 mg/dL (0.5-0.9); POTASSIUM 4.1 mmol/L (3.5-5.1)
[2019-01-15] MEDS: NORVASC PO SCH (08:17)
[2019-01-15] MEDS: NEPHROCAPS PO SCH (08:17)
[2019-01-15] MEDS: SODIUM BICARBONATE PO SCH ×2 (08:17→20:58)
[2019-01-15] MEDS: LOPRESSOR PO SCH ×2 (08:18→20:58)
[2019-01-15] MEDS: APRESOLINE PO SCH ×3 (08:18→19:05)
[2019-01-15] MEDS: LASIX PO SCH ×2 (08:18→20:58)
--- NOTE | 2019-01-15 11:11 | NEPHROLOGY PROGRESS NOTE ---
DATE: 01/15/2019 SUBJECTIVE: Ms. Metz is resting quietly in bed. Her head of the bed is elevated. She denies any pain, though she does have some abdominal discomfort. OBJECTIVE: Her most recent vital signs: Temperature 98.2 degrees, blood pressure 130/74, heart rate is 71, respirations 16, she is on room air, last recorded saturation is 100 %. She has had 1930 in, she has had 0 recorded out, with request to keep strict intake and output. LABORATORY DATA: Sodium is 130, potassium 4.1, chloride 100, CO2 of 18, BUN 106 , creatinine 6.7, glucose is 92. The patient's anion gap is 12, calcium is 7.8. White count 6.46 , hemoglobin 9.1, hematocrit 27, her platelet count is 173,000. PHYSICAL EXAMINATION: General: This is a 53-year-old female resting quietly in bed. She is in no acute distress. Skin: Warm and dry. HEENT: Normocephalic , atraumatic. Conjunctivae pale. She has TUCKER. Mucous membranes dry. Neck: Supple. Trachea midline. No JVD. Cardiovascular: She is regular rate and rhythm. She has no murmur or gallop. Lungs: Clear to auscultation anteriorly. Equal excursion on room air. Abdomen: Soft , nontender. Positive bowel sounds. Genitourinary: Not inspected. He patient has been voiding. Request to keep strict intake and output. Extremities: She has a left upper arm fistula. This is intact with palpable thrill. No edema to lower extremities. No clubbing or cyanosis. Neurological: Alert and oriented x3. ASSESSMENT AND PLAN: 1. Chronic kidney disease stage 5, acute kidney injury on chronic kidney disease. The patient's BUN and creatinine have continued to slowly rise during her hospitalization. Her BUN is 106 with a creatinine of 6.7. We have no documentation of her urine output. She was given Lasix yesterday. This may be a diuretic affect. She has no complaints of uremic symptoms. We will hold on her possible start of dialysis for her left upper arm fistula to mature. 2. Electrolytes and acid-base balance. The patient has hyponatremia secondary to #1. Her acidosis has improved from yesterday. She remains on sodium bicarbonate. 3. Anemia. This is low, but stable. 4. Gastrointestinal bleed. This is followed by Dr. Yang. I would like to thank you for allowing us to follow with this patient. Dictated by VICTOR HUGO Arechiga for Abdifatah Petersen MD Face to face encounter, data reviewed, discussed with Jana Perez on 01/16/19. I agree with the above assessment and plan of care. cc: VICTOR HUGO Arechiga MD [facility]
--- NOTE | 2019-01-15 11:51 | PROGRESS NOTE ---
DATE: 01/15/2019 SUBJECTIVE: Patient reports feeling fine. Yesterday, she reports feeling a little bit dizzy, but denies any episodes of melena or hematemesis. OBJECTIVE: Vital Signs: Temperature 97.8 degrees, heart rate 70, respiratory rate 18, blood pressure 138/73. O2 saturation 100% on room air. General: This is a chronically ill-looking, 53-year-old female lying in bed, in no acute distress. Cardiovascular: S1, S2 heard. No murmurs, gallops, or rubs. Regular rate and rhythm. Respiratory: Clear bilaterally to auscultation. No work of breathing or using accessory muscles. Abdomen: Soft, nontender to palpation. Bowel sounds present. No organomegaly. No clubbing, cyanosis or edema. Peripheral pulses present in both legs. Neurological: Patient alert and oriented x3. Moves 4 extremities. LABORATORY DATA: White cell count 6.46, hemoglobin 9.1, hematocrit 27, platelets 173,000. Sodium 130, creatinine 6.7, BUN 7. ASSESSMENT/PLAN: 1. Acute blood loss anemia secondary to gastrointestinal bleeding. Hemoglobin dropped yesterday to 7.6. So, we transfused 1 unit of blood and so far hemoglobin is 9.1 today. The patient continues to be on Protonix 40 mg IV q.[address] Yang is following this patient. My plan is to keep this patient one more day and see if hemoglobin is stable. If it is, I think it will be reasonable to send her home. At this point, we will continue with the same management. 2. Chronic kidney disease stage 5. Creatinine has increased again to 6.7. Dr. Petersen from Nephrology is following this patient. Apparently, no plans to start dialysis while she is here. 3. Hypertensive heart disease. Blood pressure is definitely much better controlled in the range of 130s and 140s. We will continue with the same management. 4. History of gastroparesis. We will continue with Reglan. 5. Tobacco abuse. Patient has been strongly advised to stop smoking. 6. Deep vein thrombosis prophylaxis. Patient is on SCDs. 7. Disposition. I think if hemoglobin is stable, it is going to be reasonable to let her go home tomorrow. Of course, if it is okay with GI and also Nephrology. cc: Scooby Hartman MD [facility]
--- NOTE | 2019-01-15 13:15 | PROGRESS NOTE ---
DATE: 01/15/2019 SUBJECTIVE: The patient states she is feeling a little better. She did receive 1 unit of packed red blood cells yesterday for a drop in her hemoglobin and hematocrit. She denies any visible blood in the stool or black stools. She reported a dark brown stool yesterday. Today, she has not had a bowel movement yet. OBJECTIVE: Vital Signs: Temperature 97.9 degrees, pulse 72, respirations 18, blood pressure 135/77. General: The patient is awake, alert, in no acute distress. LABORATORY DATA: Hematology: WBC 6.46, hemoglobin 9.1, hematocrit 27.0, MCV 89.7. Chemistry: Sodium 130, potassium 4.1, chloride 100, CO2 of 18, BUN 106, creatinine 6.7, glucose 92, calcium 7.8. OPERATIVE FINDINGS: She had an EGD on 01/12/2019 that showed arteriovenous malformation x3 in the duodenal bulb that was treated. ASSESSMENT AND PLAN: 1. Anemia. The patient received another unit of packed red blood cells yesterday. Her hemoglobin and hematocrit have improved today. 2. Arteriovenous malformation in the duodenum x3 that was treated. 3. Chronic kidney disease. She has been following with Dr. Petersen. She did have a graft placed, but dialysis has not been started yet. Dr. Petersen is following. Will continue proton pump inhibitor. Continue to monitor hemoglobin and hematocrit. Monitor for further signs of bleeding. Recommend that the patient avoid nonsteroidal anti-inflammatory drugs. Recommend she follow up with Dr. Yang in 2 to 3 weeks after discharge. Will continue to follow during her hospital course, and further plans will be made according to her progress. I have discussed this case with Dr. Yang. Dictated by VICTOR HUGO Saunders for Gerardo Yang MD cc: VICTOR HUGO Sepulveda MD
[2019-01-16] MEDS: PROTONIX IV SCH (04:21)
[2019-01-16 06:21] LABS: HEMATOCRIT 28.9 % (37.0-47.0); HEMOGLOBIN 9.7 g/dL (12.0-16.0); MCH 29.7 PG (27-31); MCHC 33.6 g/dL (33-37); MCV 88.4 FL (81-99); MPV 11.3 FL (7.4-10.4); RBC 3.27 XMIL (4.2-5.4); RDW 13.6 % (11.5-14.5); WBC 5.88 X1000 (4.8-10.8)
[2019-01-16 06:59] LABS: CALCIUM 8.2 mg/dL (8.8-10.2); CREATININE 6.2 mg/dL (0.5-0.9); POTASSIUM 3.6 mmol/L (3.5-5.1)
[2019-01-16 08:04] VITALS: BP 133/67
[2019-01-16] MEDS: LASIX PO SCH (09:37)
[2019-01-16] MEDS: NEPHROCAPS PO SCH (09:37)
[2019-01-16] MEDS: SODIUM BICARBONATE PO SCH (09:38)
[2019-01-16] MEDS: LOPRESSOR PO SCH (09:38)
[2019-01-16] MEDS: APRESOLINE PO SCH (09:38)
[2019-01-16] MEDS: NORVASC PO SCH (09:38)
[2019-01-16] MEDS ORDERED: FLU VACCINE IM ONE (09:46)
--- NOTE | 2019-01-16 13:06 | PROGRESS NOTE ---
DATE: 01/16/2019 SUBJECTIVE: The patient states she is feeling better. Hemoglobin and hematocrit have been stable over the last 2 days. She has denied any visible blood in the stool or black stools. She had an EGD on 01/12/2019 that showed arteriovenous malformation of the duodenal bulb that was treated. I believe the patient will be discharged today. OBJECTIVE: Vital Signs: Temperature 98.3 degrees, pulse 66, respirations 18, blood pressure 133/67. General: The patient is awake and alert, in no acute distress. LABORATORY DATA: Hematology: WBC 5.88, hemoglobin 9.7, hematocrit 28.9, MCV 88.4. Chemistry: Sodium 134, potassium 3.6, chloride 99, CO2 of 19, BUN 97, creatinine 6.2, glucose 91, calcium 8.2. ASSESSMENT: 1. Anemia, stable over the last several days. 2. Arterial venous malformation of the duodenum that was treated. 3. Chronic kidney disease, following with Dr. Petersen. PLAN: Continue PPI. Recommend the patient to follow up in our office to schedule a colonoscopy as an outpatient. I have given her our contact information. Further plans will be made as needed. I have discussed this case with Dr. Yang. Dictated by VICTOR HUGO Saunders for Gerardo Yang MD cc: VICTOR HUGO Sepulveda MD
--- NOTE | 2019-01-16 13:40 | NEPHROLOGY PROGRESS NOTE ---
DATE: 01/16/2019 TIME SEEN: 0725 hours. SUBJECTIVE: Constitutional: Ms. Metz is resting quietly in bed. No acute distress. Skin is warm and dry. She has no complaints. States that she is feeling better. Her most recent vital signs: This a.m., her last temperature 98.6 degrees, blood pressure 141/76, heart rate 72 respirations 16. She is on room air. Last recorded saturation is 100%. She has had 1012 in; she has had 0 recorded out General: This is a 53-year-old female resting quietly in bed. She is in no acute distress. Skin: Warm and dry. HEENT: Normocephalic, atraumatic. Conjunctiva is pale. She has TUCKER. Mucous membranes are dry. Neck: Supple. Trachea midline. No JVD. Cardiovascular: Regular rate and rhythm. She is without murmur or gallop. Lungs: Clear to auscultation bilaterally, equal excursion on room air. Abdomen: Soft, nontender. Positive bowel sounds. Genitourinary: Not inspected. Adequate void. Extremities: Has left upper arm fistula. This is palpable with good thrill. No edema present. Lower extremities have no edema. Neurologic: Alert and oriented x3. LABS: Sodium is 134, potassium 3.6, chloride 99, CO2 19. BUN 97, creatinine 6.2, glucose is 91. Her anion gap is 16. Her calcium is 8.2. White count 5.88, hemoglobin 9.7, hematocrit 28.9, with a platelet count of 194. ASSESSMENT AND PLAN: 1. Chronic kidney disease stage V. The patient has acute kidney injury on chronic kidney disease. Her creatinine is at her baseline of 5.8 to 6.1. She has no uremic symptoms. We are waiting for her fistula to mature to be able to use. It is in good order at this time. We have discussed the patient's discharge okay from our perspective. She is to follow up in our office. She has an appointment noted on 01/31/2019, and that will be appropriate for her follow-up. 2. Electrolytes, acid-base balance; these have been stable. We will plan for repeat labs prior to her appointment. 3. Anemia. This is low, but stable. 4. Gastrointestinal bleed. This has been followed by the primary care team and Dr. Trey to follow up on an outpatient basis. I would like to thank you for allowing us to follow with this patient. Dictated by VICTOR HUGO Arechiga for Abdifatah Petersen MD cc: VICTOR HUGO Arechiga MD
== END 2019-01-16 12:03 | disposition home or self-care (01) | DRG 377 ==
LOC: ED 07:36 → EDIPHOLD 07:37 → SUATTDRO 07:37 → ICU 13:35 → 4N 01-13 17:38
PROVIDERS: ATTEND Internal Medicine
PROC: EN.HEAT (2019-01-12 11:05)
CPT/HCPCS: 36430; 71020; 71046; 80048; 80053; 82270; 82550; 82728; 83540; 83550; 83735; 83880; 84466; 84484; 85014; 85018; 85025; 85027; 85610; 85730; 86850; 86900; 86901; 86920; 90686; 93005; 93010; 93990; 96365; 96366; 96375; 99285; A9270; C9113; J0360; J1940; J2270; J2405; J2550; J7040; P9016; S0164